=== PATIENT | female | born 1970 | race American Indian/Alaskan Native ===

== ENCOUNTER 2017-02-06 09:36 | Outpatient (CLI) | payer MEDICARE ==
--- NOTE | 2017-02-06 13:53 | Mammography Report ---
BILATERAL DIGITAL SCREENING MAMMOGRAM with CAD: 02/06/17 09:36:00 CLINICAL: Routine screening. COMPARISON:09/20/15 FINDINGS: The breasts are almost entirely fatty. No mass, architectural distortion or suspicious calcifications. IMPRESSION: No mammographic evidence of malignancy. BI-RADS CATEGORY: 1 - - Negative RECOMMENDATION: Routine mammographic screening in one year. COMMENT: Patient follow-up letters are generated by our [employer] application.
== END 2017-02-06 09:37 | disposition home or self-care (01) ==
LOC: SPVWC 09:36
PROVIDERS: ATTEND Family Medicine
DX: Z12.31 Encounter for screening mammogram for malignant neoplasm of breast (principal); I10 Essential (primary) hypertension
CPT/HCPCS: 77067; G0202

== ENCOUNTER 2020-08-31 10:12 | Outpatient (CLI) | payer MEDICARE ==
--- NOTE | 2020-08-31 16:09 | Mammography Report ---
DIGITAL SCREENING MAMMOGRAM, 08/31/2020 CLINICAL INFORMATION / INDICATION: Routine screening mammography. TECHNIQUE: Digital bilateral 2D mammography was obtained in the craniocaudal and mediolateral obliqu e projections. COMPARISON: 02/06/2017, 09/20/2015 FINDINGS: Breast Density: The breasts are almost entirely fatty. No dominant mass, suspicious calcifications, or architectural distortion in the left breast. There is a more dense nodular density seen along the middle depth 3:00 position of the right breast m easuring 7 mm. No other significant abnormality of the right breast. IMPRESSION: More dense nodular density in the right breast as above could represent an intramammary n ode. A limited right breast ultrasound and possible diagnostic right mammogram with spot compression views is recommended for further evaluation. Follow up recommendation: Ultrasound BI-RADS Category 0: Incomplete. Needs additional imaging evaluation and/or prior mammograms for dottie calion. A "normal" or negative report should not discourage follow up or biopsy of a clinically significant f inding. A written summary of these findings will be mailed to the patient. The patient will be entered into a mammography reporting system which will generate a reminder letter for the patient's next appointmen t at the appropriate interval. The [employer] recommends yearly mammograms starting at age 40 and continuing as l carloz as a woman is in good health. Breast MRI is recommended for women with an approximate 20-25% or greater lifetime risk of breast cancer, including women with a strong family history of breast or ova jhony cancer or who have been treated for Hodgkin's disease. Signer Name: Isac Pradhan MD Signed: 08/31/2020 4:05 PM Workstation Name: [id number]
== END 2020-08-31 10:13 | disposition home or self-care (01) ==
LOC: SPVWC 10:12
PROVIDERS: ATTEND Family Medicine
DX: Z12.31 Encounter for screening mammogram for malignant neoplasm of breast (principal)
CPT/HCPCS: 77067

== ENCOUNTER 2020-09-20 09:41 | Outpatient (CLI) | payer MEDICARE ==
--- NOTE | 2020-09-20 10:48 | Ultrasound Report ---
US TRANSVAGINAL US PELVIC COMPLETE INDICATION / CLINICAL INFORMATION: PELVIC PAIN R10.2. COMPARISON: None available. FINDINGS: Transabdominal and transvaginal imaging was performed. There has been prior hysterectomy. Neither ovary is visualized. No adnexal lesions are seen. No free fluid is seen. IMPRESSION: 1. Prior hysterectomy. 2. No fluid collection, free fluid, or adnexal pathology. Ovaries not visualized. Signer Name: Joss Palmer MD Signed: 09/20/2020 10:44 AM Workstation Name: [id number]
== END 2020-09-20 09:42 | disposition home or self-care (01) ==
LOC: SPVWC 09:41
PROVIDERS: ATTEND Family Medicine
DX: R10.2 Pelvic and perineal pain (principal); Z90.710 Acquired absence of both cervix and uterus
CPT/HCPCS: 76830; 76856

== ENCOUNTER 2020-09-27 08:43 | Outpatient (CLI) | payer MEDICARE ==
--- NOTE | 2020-09-27 11:48 | Ultrasound Report ---
See combined report Signer Name: Yonis Hollins MD Signed: 09/27/2020 10:29 AM Workstation Name: [id number]
--- NOTE | 2020-09-27 11:48 | Mammography Report ---
RIGHT DIGITAL DIAGNOSTIC MAMMOGRAM WITH CAD CONVENTIONAL, 09/27/2020 RIGHT LIMITED BREAST ULTRASOUND CLINICAL INFORMATION / INDICATION: Abnormal screening mammogram TECHNIQUE: Digital right mammographic imaging was performed. Spot compression and magnification views were obtained. Limited ultrasound was performed. This examination was interpreted with the benefit o f Computer-Aided Detection (CAD) analysis. COMPARISON: Screening mammography 08/31/2020 and multiple priors FINDINGS: Breast Density: There are scattered areas of fibroglandular density. MAMMOGRAPHIC FINDINGS: Case was discussed with the radiologist who reported the original screening st udy and the area of interest is lateral at 9:00, not medial at 3:00 as originally reported. The benig n-appearing densities in the lateral aspect of the right breast appear to represent benign lymph node s and are less prominent than 2016. No suspicious abnormalities are seen. ULTRASOUND FINDINGS: Targeted ultrasound evaluation was performed of the area of interest. No abnorma lities are seen in the area of interest. IMPRESSION: Benign-appearing lymph nodes account for the radiographic density in question Follow up recommendation: Routine yearly BI-RADS Category 2: Benign. A "normal" or negative report should not discourage follow up or biopsy of a clinically significant f inding. A written summary of these findings will be mailed to the patient. The patient will be entered into a mammography reporting system which will generate a reminder letter for the patient's next appointmen t at the appropriate interval. According to the [employer], yearly mammograms are recommended starting at age 40 and continuing as long as a woman is in good health. Breast MRI is recommended for women with an paul roximately 20-25% or greater lifetime risk of breast cancer, including women with a strong family his tory of breast or ovarian cancer and women who have been treated for Hodgkin's disease. Signer Name: Yonis Hollins MD Signed: 09/27/2020 10:29 AM Workstation Name: [id number]
== END 2020-09-27 08:44 | disposition home or self-care (01) ==
LOC: SPVWC 08:43
PROVIDERS: ATTEND Family Medicine
DX: R92.8 Other abnormal and inconclusive findings on diagnostic imaging of breast (principal)

== ENCOUNTER 2021-10-16 10:21 | Outpatient (CLI) | payer MEDICARE ==
--- NOTE | 2021-10-17 16:06 | Mammography Report ---
DIGITAL SCREENING MAMMOGRAM WITH CAD, 10/16/2021 CLINICAL INFORMATION / INDICATION: Routine screening mammography. SCREENING MAMMO TECHNIQUE: Digital bilateral 2D mammography was obtained in the craniocaudal and mediolateral obliqu e projections. This examination was interpreted with the benefit of Computer-Aided Detection analysis . COMPARISON: Prior mammogram 08/31/2020 and 02/06/2017 FINDINGS: Breast Density: There are scattered areas of fibroglandular density. No dominant mass, suspicious calcifications, or architectural distortion in either breast. There has been no significant change compared with the prior examination. IMPRESSION: No mammographic evidence of malignancy. Follow up recommendation: Routine yearly BI-RADS Category 1: NEGATIVE A "normal" or negative report should not discourage follow up or biopsy of a clinically significant f inding. A written summary of these findings will be mailed to the patient. The patient will be entered into a mammography reporting system which will generate a reminder letter for the patient's next appointmen t at the appropriate interval. The [employer] recommends yearly mammograms starting at age 40 and continuing as l carloz as a woman is in good health. Breast MRI is recommended for women with an approximate 20-25% or greater lifetime risk of breast cancer, including women with a strong family history of breast or ova jhony cancer or who have been treated for Hodgkin's disease. Signer Name: Stacy Escobedo MD Signed: 10/17/2021 4:01 PM Workstation Name: [id number]
== END 2021-10-16 10:22 | disposition home or self-care (01) ==
LOC: SPVWC 10:21
PROVIDERS: ATTEND Family Medicine
DX: Z12.31 Encounter for screening mammogram for malignant neoplasm of breast (principal); N64.89 Other specified disorders of breast
CPT/HCPCS: 77067